=== PATIENT | female | born 1945 | race Asian ===

== ENCOUNTER 2024-12-21 10:27 | Emergency (ER) | payer MEDICARE ==
[~2024-12-21] VITALS: Ht 152.4 cm; Wt 59.0 kg
[2024-12-21 10:53] VITALS: TEMP 98.2
[2024-12-21 12:56] LABS: BASOPHILS % 0.3 % (0.0-1.0); EOSINOPHILS # (AUTO) 0.1 (0.0-0.4); EOSINOPHILS % 0.7 % (0.0-6.0); HEMATOCRIT 40.5 % (34.2-44.1); HEMOGLOBIN 12.3 g/dL (12.0-16.0); LYMPHOCYTES # (AUTO) 0.6 (1.0-3.2); LYMPHOCYTES % 8.7 % (18.0-39.1); MEAN CORPUSCULAR HEMOGLOBIN 23.5 pg (28-32); MEAN CORPUSCULAR HGB CONC 30.4 g/dL (31-35); MEAN CORPUSCULAR VOLUME 77.3 fL (81-99); MONOCYTES # (AUTO) 0.7 (0.2-0.8); MONOCYTES % 10.3 % (4.4-11.3); NEUTROPHILS # (AUTO) 5.3 (2.1-6.9); NEUTROPHILS % 79.6 % (38.7-80.0); PLATELET COUNT 186 x10e3/uL (140-360); RED BLOOD COUNT 5.24 x10e6/uL (3.6-5.1); RED CELL DISTRIBUTION WIDTH 15.5 % (11.7-14.4); WHITE BLOOD COUNT 6.68 x10e3/uL (4.8-10.8)
[2024-12-21 14:30] VITALS: PULSE 68; RESP 48; O2SAT 98
[2024-12-21 15:06] LABS: ALANINE AMINOTRANSFERASE 17 IU/L (0-55); ALBUMIN 3.6 g/dL (3.5-5.0); ALKALINE PHOSPHATASE 141 IU/L (40-150); ANION GAP 15.5 mmol/L (8-16); BILIRUBIN,TOTAL 0.7 mg/dL (0.2-1.2); BLOOD UREA NITROGEN 13 mg/dL (7-26); BUN/CREATININE RATIO 17 (6-25); CALCIUM 9.1 mg/dL (8.4-10.2); CARBON DIOXIDE 24 mmol/L (22-29); CHLORIDE 99 mmol/L (98-107); CREATININE, SERUM 0.75 mg/dL (0.57-1.11); EST GLOMERULAR FILTRATION RATE 80 ML/MIN (>=60); GLUCOSE 188 mg/dL (74-118); POTASSIUM 4.5 mmol/L (3.5-5.1); SODIUM 134 mmol/L (136-145); TOTAL PROTEIN 7.3 g/dL (6.5-8.1)
[2024-12-21] MEDS ORDERED: IOPAMIDOL 370 MG/ML 100 ML INFUS..BTL INJ ONE (15:22)
[2024-12-21] MEDS ORDERED: VENTOLIN HFA18 GM INH (15:26)
[2024-12-21 15:48] LABS: LIPASE < 4 U/L (8-78)
[2024-12-23] MEDS ORDERED: NOVOLOG100 UNITS1 (03:50)
[2024-12-23] MEDS ORDERED: ROSUVASTATIN CA20 MG PO (03:50)
[2024-12-23] MEDS ORDERED: LINZESS145 MCG PO (03:50)
[2024-12-23] MEDS ORDERED: LEVOTHYROXINE88 MCG PO (03:50)
[2024-12-23] MEDS ORDERED: ENALAPRIL MALEA20 MG PO (03:50)
[2024-12-23] MEDS ORDERED: JARDIANCE10 MG PO (03:50)
[2024-12-23] MEDS ORDERED: LANTUS 3ML100 UNITS/ (03:50)
== END 2024-12-21 15:35 | disposition left against medical advice (07) ==
LOC: ER 11:58
DX: R06.02 Shortness of breath (principal); J90 Pleural effusion, not elsewhere classified; I10 Essential (primary) hypertension; E11.65 Type 2 diabetes mellitus with hyperglycemia; K21.9 Gastro-esophageal reflux disease without esophagitis; R94.31 Abnormal electrocardiogram [ECG] [EKG]; Z98.0 Intestinal bypass and anastomosis status
CPT/HCPCS: 36415; 71045; 80053; 83690; 83880; 84484; 85025; 85379; 93005; 99284; Q9967